=== PATIENT | male | born 1980 | race Asian ===

== ENCOUNTER → 2022-11-07 | Outpatient (CLI) | payer MEDICARE, OTHER | END | disposition home or self-care (01) | LOC: RADMN 11:07 | PROVIDERS: ATTEND Podiatrist Foot & Ankle Surgery | DX: M77.32 Calcaneal spur, left foot (principal); M79.89 Other specified soft tissue disorders; M79.672 Pain in left foot; S92.812S Other fracture of left foot, sequela; X58.XXXS Exposure to other specified factors, sequela | CPT/HCPCS: 73630-TC ==

== ENCOUNTER 2023-12-01 15:35 | Emergency (ER) | payer MEDICARE, OTHER, SELFPAY ==
[~2023-12-01] VITALS: Ht 175.3 cm; Wt 99.5 kg
[~2023-12-01 15:35] MED LIST: OSEL75 PO
[2023-12-01 15:42] VITALS: TEMP 101.1
[2023-12-01] MEDS: ACETAMINOPHEN 500 MG TABLET PO ONE (16:20)
[2023-12-01] MEDS: GuaiFENesin/D-METHORPHAN [SUGAR-FREE] 200-20MG/10 ML SYRUP UDCUP PO ONE (16:20)
[2023-12-01] MEDS: IBUPROFEN 600 MG TABLET PO ONE (16:20)
[2023-12-01] MEDS: LIDOCAINE 2% VISCOUS 15 ML SOLUTION UDCUP PO ONE (16:21)
[2023-12-01 16:22] LABS: BASOPHILS % (AUTO) 0.6 % (0.0-2.0); EOSINOPHILS % (AUTO) 0.6 % (1.0-6.0); HEMATOCRIT 47.1 % (41-53); HEMOGLOBIN 15.5 g/dL (13.5-17.5); LYMPHOCYTES # (AUTO) 0.8 K/uL (1.0-4.8); MEAN CORPUSCULAR HEMOGLOBIN 24.1 pg (26.0-34.0); MEAN CORPUSCULAR HGB CONC 32.9 G/dL (31.0-37.0); MEAN CORPUSCULAR VOLUME 73 fL (80-100); MONOCYTES # (AUTO) 1.5 K/uL (0.1-1.0); MONOCYTES % (AUTO) 11.7 % (2.0-9.0); NEUTROPHILS # (AUTO) 10.4 K/uL (1.8-7.7); NEUTROPHILS % (AUTO) 81.1 % (40.0-70.0); PLATELET COUNT (AUTO) 249 K/uL (150-450); RED BLOOD CELL COUNT(AUTO) 6.43 MIL/uL (4.50-5.90); RED CELL DISTRIBUTION WIDTH 14.8 % (11.5-14.5); WHITE BLOOD COUNT (AUTO) 12.9 K/uL (4.5-11.0)
[2023-12-01 16:30] LABS: CALCIUM, TOTAL 9.4 mg/dL (8.8-10.5); CREATININE 1.43 mg/dL (0.60-1.30)
[2023-12-01 16:32] LABS: POTASSIUM 2.8 mmol/L (3.5-5.1)
[2023-12-01] MEDS ORDERED: LOSA-382 PO (16:58)
[2023-12-01] MEDS ORDERED: ACET-3385 PO (16:58)
[2023-12-01] MEDS ORDERED: AMLO2.5T96 PO (16:58)
[2023-12-01] MEDS ORDERED: SERT-158 PO (16:58)
[2023-12-01 17:04] LABS: COVID AG,FIA SOURCE NASAL SWAB
[2023-12-01 17:08] VITALS: BP 125/63; PULSE 91; RESP 20
[2023-12-01] MEDS ORDERED: SERT-440 PO (17:12)
[2023-12-01] MEDS ORDERED: CHLO25TA3 PO (17:12)
[2023-12-01] MEDS ORDERED: LURA20TA2 PO (17:12)
[2023-12-01] MEDS ORDERED: AMLO5TAB66 PO (17:12)
[2023-12-01] MEDS: POTASSIUM CHLORIDE 20 MEQ ER TABLET PO ONE (17:18)
[2023-12-01 17:22] LABS: INFLUENZA TYPE A NEGATIVE FOR TYPE A (NEGATIVE); INFLUENZA TYPE B NEGATIVE FOR TYPE B (NEGATIVE)
[2023-12-01 18:01] LABS: SARS-COV2 (COVID) ANTIGEN,FIA Positive (Negative)
[2023-12-01] MEDS ORDERED: NIRM1TAB10 PO (18:25)
[2023-12-01] MEDS ORDERED: IBUP-1554 PO (18:25)
[2023-12-01] MEDS ORDERED: GUAIFDM PO (18:25)
[2023-12-01] MEDS ORDERED: ACET-2080 PO (18:25)
== END 2023-12-01 18:53 | disposition home or self-care (01) ==
LOC: EMS 15:35
DX: U07.1 COVID-19 (principal); J06.9 Acute upper respiratory infection, unspecified; E87.6 Hypokalemia; J20.9 Acute bronchitis, unspecified; R51.9 Headache, unspecified; R05.9 Cough, unspecified; I10 Essential (primary) hypertension
CPT/HCPCS: 80048; 85025; 87430; 87804; 99284

== ENCOUNTER 2024-02-10 23:59 | Emergency (ER) | payer MEDICARE, OTHER ==
[~2024-02-10] VITALS: Ht 167.6 cm; Wt 110.0 kg
[~2024-02-10 23:59] MED LIST changes: +ACET-2080 PO; +ACET-3385 PO; +AMLO5TAB66 PO; +CHLO25TA3 PO; +GUAIFDM PO; +IBUP-1554 PO; +LOSA-382 PO; +LURA20TA2 PO; +NIRM1TAB10 PO; -OSEL75 PO; +SERT-440 PO
[2024-02-11 00:03] VITALS: BP 108/72; PULSE 88; RESP 16; TEMP 98.3; O2SAT 96
== END 2024-02-11 06:15 | disposition left against medical advice (07) ==
LOC: EMS 02-11
DX: R11.2 Nausea with vomiting, unspecified (principal); Z53.21 Procedure and treatment not carried out due to patient leaving prior to being seen by health care provider